=== PATIENT | female | born 1970 | race Caucasian/White ===

== ENCOUNTER → 2016-12-24 | Outpatient (CLI) | payer OTHER ==
--- NOTE | 2016-12-24 10:42 | DI ---
PA /LATERAL CHEST X-RAY, 12/24/2016 10:10 AM : Clinical History: Dyspnea. Previous Exam: 01/17/2016. There is no acute soft tissue or bony abnormality. Heart size is normal. Lungs are clear. Mediastinal structures are normal. There are no pulmonary nodules. There is a coiled tube in the upper abdomen i n this patient may have had a gastric banding procedure. Reading: Normal chest x-ray. There has been no interval change.
== END ==
LOC: MOB RAD 10:25
PROVIDERS: ATTEND Physician Assistant Medical
DX: R06.00 Dyspnea, unspecified (principal)
CPT/HCPCS: 71020

== ENCOUNTER 2017-01-13 06:39 | Emergency (ER) | payer OTHER ==
[2017-01-13 07:07] VITALS: RESP 18; TEMP 97.9
[2017-01-13] MEDS ORDERED: LIDOCAINE HCL 5 ML JEL TOPICAL ONE (08:26)
--- NOTE | 2017-01-13 08:47 | PDOC ---
General Adult HPI - General Chief Complaint: General Medical Stated Complaint: "balloon in my feeding tube popped" Date Seen by Provider: 01/13/17 Time Seen by Provider: 06:50 Source: POSITIVE: Patient Exam Limitations: POSITIVE: No limitations Nurse's Notes Reviewed & Considered: Yes - History of Present Illness Initial Comment: The patient is a 46-year-old female who presents to the emergency department stating that her PEG tube balloon ruptured. She has a history of gastroparesis and had a feeding tube placed per gastroenterology in [place] in 2012. She states that she generally gets her tube replaced every 6 months. Her current to has been in place for approximately 5 months. She states that this morning she felt something pop in her stomach and now the tube is no longer anchored. The tube remains in place. She does describe a little bit of a sharp pain in the area of the tube. She has no other associated symptoms. She does state that when she has had her tube replaced in the past they have always taken her to the operating room and done an endoscopy at the same time. Have you received a tetanus shot in the past 10 years?: Yes - Patient Home Medications Home Medications: Home Medications Estradiol [Vivelle-Dot] 1 patch TRANSDERM 2XW #8 patch 03/12/16 Morphine Sulfate 15 mg PO BID 06/09/16 Multivitamin [Multivitamins] 2 tab PO BID 06/09/16 Nutritional Supplement [Osmolite 1.2 Jhonathan] 4 each PO QID #120 bottle 08/12/16 Baclofen 10 mg PO QID tab 08/19/16 Buspirone HCl 2 tab PO bedtime tab 10/21/16 Dicyclomine HCl 5 ml PO Q4H PRN #120 bottle 11/14/16 Furosemide 20 mg PO DAILY #30 tab 11/14/16 Levothyroxine Sodium 1 tab PO DAILY #30 tab 12/13/16 Dexlansoprazole [Dexilant] 2 cap PO DAILY #60 cap 01/10/17 Fluoxetine HCl 40 mg PO DAILY #300 ml 01/10/17 - Patient Allergies Allergies/Adverse Reactions: Allergies Allergy/AdvReac Type Severity Reaction Status Date / Time hydrocodone AdvReac JITTERY/ITC Verified 01/13/17 06:49 HY oxycodone HCl [From Percocet] AdvReac JITTERY/ITC Verified 01/13/17 06:49 HY Past Medical History - heen HEENT History: Denies History, Other (please comment) Additional HEENT History: wears glasses/contacts Cardiovascular History: Other (please comment) Additional Cardiovasular History: MITRAL VALVE PROLAPSE Respiratory History: Pneumonia Additional Respiratory History: quit smoking several years ago Gastrointestinal History: GERD, Irritable Bowel Syndrome, Gallbladder Disease, Celiac Disease, Other (please comment) Additional Gastrointestinal History: ABDOMINAL STENTS, APPENDECTOMY, GASTROPARESIS. J TUBE (2012) osmolite feeding- 4 cans per day Genitourinary History: Denies History Endocrine History: Hypothyroidism Musculoskeletal History: Arthritis, Back Pain, Joint Pain, Other (please comment ) Prosthesis or Implant: Yes (C4-5 FUSED/KNEES) Additional Musculoskeletal History: 2 BACK FUSIONS AND BILAT KNEE REPLACEMENT, HEEL FX, left knee arthroplasty Neurological History: Migraines Additional Neurological History: MIGRAINES FREQUENT Blood Disorders: Denies History Psychiatric History: Depression, Anxiety Disorders Additional Psychiatric History: Insomnia History of Sexually Transmitted Diseases: No Female Reproductive History: Hysterectomy Cancer History: Denies History In Past Year Been Physically Harmed or Verbally Threatened: No History of MDRO: No History of Other Communicable Diseases: Yes (SHINGLES) Tobacco Use: Former Smoker Alcohol Use: None Substance Use Type: None Previous Surgical History: Yes Type / Date of Surgery: FULL HYSTERECTOMY, APPENDECTOMY, CHOLECYSTECTOMY, TONSILLECTOMY, J TUBES, COLONOSCOPY / EGD/ L KNEE /BACK/ TUBAL/ VERTEBRAL FUSION C4-5, RTKA, PEG TUBE INSERTION/UNILATERAL OOPHORECTOMY/ J TUBE REPLACED Anesthesia Reactions: No Malignant Hyperthermia: No Significant Family History: Heart disease, Diabetes, Other (please comment) Additional Family History: BIPOLAR DISORDER Past Medical History Reviewed: Reviewed - No Changes ROS - Limitations ROS Limitations: No Limitations Constitution: DENIES: Chills, Fever Cardiovascular: REPORTS: Denies Cardiac Symptoms Respiratory: REPORTS: Denies Resp Symptoms General Adult Exam - General Appearance General Appearance: POSITIVE: Alert, Cooperative, No Acute Distress - Respiratory Respiratory: POSITIVE: No Respiratory Distress, Breath Sounds Normal - Cardiovascular Cardiovascular: POSITIVE: Regular Rate & Rhythm, No Murmur - Abdomen Abdomen: Soft: (All Quadrants), Denies Tenderness: (All Quadrants), No Distention: (All Quadrants) Additional Abdominal Details: She does have a PEG tube in place. This does appear loose. I did attempt to aspirate the balloon and the balloon does appear to be ruptured at this time. - Extremities Extremity: Normal Inspection: (All Extremities) General Adult Progress - Results Reviewed by me Xrays/CTs/US Reviewed by me: Yes Radiology Findings: KUB reveals a long jejunostomy tube. - Patient's Progress MDM / ED Course: Shortly after arrival I did consult Dr. Pedersen from general surgery. He was not sure if this tube had some type of extension because of the patient's history of gastroparesis. He recommended either obtaining an x-ray or discussing the patient with her business transformation manager from [place]. Subsequently contacted the business transformation manager on-call at the [facility] in [place]. He will make arrangements to have the tube replaced down in [place] later this afternoon. This was discussed with the patient. She will keep the tube taped in place to prevent dislodgment. Her business transformation manager's office will be contacting her with an appointment time later this afternoon. - Consult Counseled: POSITIVE: Patient, RE: DX, RE: Need for F/U Patient Care Time - Estimated PCT Patient Care Time (In Minutes): 35 Vital Signs - Recent Vital Signs Vital Signs: Vital Signs (Last 8 hours) Temp Pulse Resp BP Pulse Ox 01/13/17 06:40 97.9 F 90 18 152/106 95 - VS Reviewed Vital Signs Reviewed: Yes Discharge Clinical Impression: Feeding tube dysfunction Discharge Disposition: Discharged to Home Condition: Stable Additional Instructions: Keep the feeding tube taped in place to prevent dislodgment. Dr. Salinas office should be getting a hold of you for an appointment time this afternoon in [place] for replacement of the tube. Return to the emergency room if increased pain, worsening or change in symptoms. Follow Up With: HOLLY HALL [Primary Care Provider] -
--- NOTE | 2017-01-13 09:40 | DI ---
XR ABDOMEN (KUB) FLAT [place],01/13/2017 8:50 AM: Clinical History: PEG tube malfunction. Previous Exam: January 17, 2016 Findings: 2 views of the abdomen and pelvis are obtained, and demonstrate a nonobstructive bowel gas pattern. A PEG tube is noted which appears to have a new coil over the midline. This appears to be within the distal stomach or within the duodenum. Impression: 1. New loop within the PEG tube. This could be within the duodenum, or could be outside of the patien t. Recommend correlation with physical exam.
== END 2017-01-13 10:17 | disposition home or self-care (01) ==
LOC: ER 06:39
DX: T85.598A Other mechanical complication of other gastrointestinal prosthetic devices, implants and grafts, initial encounter (principal)
CPT/HCPCS: 74000; 99282

== ENCOUNTER 2017-02-26 08:11 | Emergency (ER) | payer OTHER ==
[2017-02-26 08:30] VITALS: RESP 18
[2017-02-26] MEDS ORDERED: Famotidine Inj 20 MG in Normal Saline Flush 10 ML IVP ONE (08:40)
[2017-02-26] MEDS ORDERED: Sodium Chloride 0.9% 1,000 ML PRIMARY IV ONE (08:40)
[2017-02-26] MEDS ORDERED: NORMAL SALINE 10 ML SYRINGE FLUSH IVP PRN (08:40)
[2017-02-26 08:58] LABS: BASOPHILS # (AUTO) 0.03 10*3/UL; BASOPHILS % (AUTO) 0.4 % (0-1); EOSINOPHILS # (AUTO) 0.21 10*3/UL; EOSINOPHILS % (AUTO) 2.7 % (0-8); HEMATOCRIT 40.7 % (37.0-47.0); HEMOGLOBIN 14.2 g/dL (12.0-16.0); LYMPHOCYTES # (AUTO) 2.39 10*3/uL; MEAN CORPUSCULAR HEMOGLOBIN 27.3 PG (27-31); MEAN CORPUSCULAR HGB CONC 34.9 g/dL (33-37); MEAN CORPUSCULAR VOLUME 78.1 FL (81-99); MEAN PLATELET VOLUME 10.2 FL (7.4-12.2); MONOCYTES # (AUTO) 0.62 10*3/UL (0.3-0.8); NEUTROPHILS # (AUTO) 4.48 10*3/UL; NEUTROPHILS % (AUTO) 57.8 % (50-80); RED BLOOD COUNT 5.21 10^6/uL (4.20-5.40)
[2017-02-26] MEDS ORDERED: Belladon/PHENobarbital Elixir 10 ML, Lidocaine Viscous Liquid 2% 15 ML, Mag Hyd/Al Hyd/... PO ONE ×3 (09:00)
[2017-02-26] MEDS ORDERED: GLUCAGON EMERGENCY KIT 1 MG KIT IVP ONE (09:00)
[2017-02-26] MEDS ORDERED: LORazepam 2 MG/1 ML VIAL IVP ONE (09:00)
--- NOTE | 2017-02-26 09:01 | PDOC ---
General Adult HPI - General Chief Complaint: Abdomen Pain Stated Complaint: abd pain after j tube placed Date Seen by Provider: 02/26/17 Time Seen by Provider: 08:20 Source: POSITIVE: Patient Exam Limitations: POSITIVE: No limitations Nurse's Notes Reviewed & Considered: Yes - History of Present Illness Initial Comment: The patient is a 47-year-old female. She states that she has a history of gastroparesis and receives parenteral feedings with Osmolite through a jejunostomy tube. She had her jejunostomy tube replaced endoscopically by her team lead 5 days ago in [place]. The day after this procedure she developed "bad heartburn". She states she has pain with swallowing and she's describing odynophagia. No nausea or vomiting. Some loose bowel movements; no melena or hematochezia. No respiratory complaints. Patient states that she was advised by her team lead to come to the emergency room if she develops any chest pain. She states that when she swallows she has pain in the esophageal area. Patient has a history of celiac disease and multiple sclerosis. She's had an appendectomy, hysterectomy and cholecystectomy. Also has a history of chronic heartburn for which he takes Dexilant, 60 mg twice daily. Have you received a tetanus shot in the past 10 years?: Yes Body Location Affected: REPORTS: Chest, Abdomen Timing: REPORTS: Intermittent Duration: <1 week (4 days, ever since one day after her jejunostomy was replaced ) Severity: Moderate Quality: REPORTS: "Pain" Context: REPORTS: Other (Pain occurs mostly when swallowing) Modifying Factors: improves with: Nothing Similar Symptoms Previously: Yes (some past history of "heartburn".) Recent Care Received: REPORTS: Recently Seen, Treated by , Surgery ( jejunostomy tube replacement 5 days ago in [place] as above.) Any Prior Injuries Related to Current Complaint?: No - Patient Home Medications Home Medications: Home Medications Estradiol [Vivelle-Dot] 1 patch TRANSDERM 2XW #8 patch 03/12/16 Morphine Sulfate 5 mg PO QID 06/09/16 Multivitamin [Multivitamins] 2 tab PO BID 06/09/16 Nutritional Supplement [Osmolite 1.2 Jhonathan] 4 each PO QID #120 bottle 08/12/16 Baclofen 10 mg PO QID tab 08/19/16 Levothyroxine Sodium 1 tab PO DAILY #30 tab 12/13/16 Dicyclomine HCl 5 ml PO Q4H PRN #120 bottle 02/13/17 Buspirone HCl 10 mg J TUBE DAILY 02/26/17 Buspirone HCl 20 mg J TUBE BEDTIME 02/26/17 Dexlansoprazole [Dexilant] 60 mg J TUBE BID 02/26/17 FLUoxetine HCl [PROzac] 20 mg J TUBE DAILY 02/26/17 - Patient Allergies Allergies/Adverse Reactions: Allergies Allergy/AdvReac Type Severity Reaction Status Date / Time hydrocodone AdvReac JITTERY/ITC Verified 02/26/17 08:17 HY oxycodone HCl [From Percocet] AdvReac JITTERY/ITC Verified 02/26/17 08:17 HY Past Medical History - heen HEENT History: Denies History Additional HEENT History: wears glasses/contacts Cardiovascular History: Other (please comment) Additional Cardiovasular History: MITRAL VALVE PROLAPSE Respiratory History: Pneumonia Additional Respiratory History: quit smoking several years ago Gastrointestinal History: GERD, Irritable Bowel Syndrome, Gallbladder Disease, Celiac Disease, Other (please comment) Additional Gastrointestinal History: ABDOMINAL STENTS, APPENDECTOMY, GASTROPARESIS. J TUBE (2012) osmolite feeding- 4 cans per day Genitourinary History: Denies History Endocrine History: Hypothyroidism Musculoskeletal History: Arthritis, Back Pain, Joint Pain, Other (please comment ) Prosthesis or Implant: Yes (C4-5 FUSED/KNEES) Additional Musculoskeletal History: 2 BACK FUSIONS AND BILAT KNEE REPLACEMENT, HEEL FX, left knee arthroplasty Neurological History: Migraines Additional Neurological History: MIGRAINES FREQUENT Blood Disorders: Denies History Psychiatric History: Depression, Anxiety Disorders Additional Psychiatric History: Insomnia History of Sexually Transmitted Diseases: No Female Reproductive History: Hysterectomy Obstetrical History: Denies History Cancer History: Denies History In Past Year Been Physically Harmed or Verbally Threatened: No History of MDRO: No History of Other Communicable Diseases: Yes (SHINGLES) Tobacco Use: Never Smoker Alcohol Use: None Substance Use Type: None Previous Surgical History: Yes Type / Date of Surgery: FULL HYSTERECTOMY, APPENDECTOMY, CHOLECYSTECTOMY, TONSILLECTOMY, J TUBES, COLONOSCOPY / EGD/ L KNEE /BACK/ TUBAL/ VERTEBRAL FUSION C4-5, RTKA, PEG TUBE INSERTION/UNILATERAL OOPHORECTOMY/ J TUBE REPLACED Anesthesia Reactions: No Malignant Hyperthermia: No Significant Family History: Heart disease, Diabetes, Other (please comment) Additional Family History: BIPOLAR DISORDER Past Medical History Reviewed: Reviewed - No Changes ROS - Limitations ROS Limitations: No Limitations Constitution: REPORTS: Denies Symptoms Cardiovascular: REPORTS: Denies Cardiac Symptoms, Other (Odynophagia upper and mid esophagus) Respiratory: REPORTS: Denies Resp Symptoms Neurological: REPORTS: Denies Neuro Symptoms Gastrointestinal: REPORTS: Abdominal Pain (Some epigastric pain which patient describes as "heartburn") Endocrine: REPORTS: Denies Symptoms Musculoskeletal: REPORTS: Denies MS Symptoms Genitourinary: REPORTS: Denies Symptoms Eyes: REPORTS: Denies Symptoms ENT: REPORTS: Denies Symptoms Skin: REPORTS: Denies Skin Symptoms Lympathic: REPORTS: Denies Lympathic Symptoms Immunologic: POSITIVE: Denies Symptoms Psychiatric: POSITIVE: Denies Psych Symptoms General Adult Exam - General Appearance General Appearance: POSITIVE: Alert, Cooperative, No Acute Distress, No Evidence of Trauma - HEENT HEENT: POSITIVE: Head Inspection Nml, Eyes Inspection Nml, Ears Inspection Nml, Nose Inspection Nml, Oral/Dental Inspect. Nml, Pharynx Inspect. Nml, PERRL, EOMI - Pupils Pupil Size: 3 mm: Bilateral (PERRLA) - Neck Neck: POSITIVE: Normal Inspection, Thyroid Normal - Respiratory Respiratory: POSITIVE: No Respiratory Distress, Breath Sounds Normal, Chest Non- Tender - Cardiovascular Cardiovascular: POSITIVE: Regular Rate & Rhythm, No Murmur, No Gallop, PMI Normal Peripheral Pulses: Radial (R): 2+, Radial (L): 2+ - Abdomen Abdomen: Soft: (All Quadrants), Normal Bowel Sounds: (All Quadrants), Denies Tenderness: (LLQ), (RLQ), No Splenomegaly: (All Quadrants), No Hepatomegaly: ( All Quadrants), No Guarding: (All Quadrants), No Rebound: (All Quadrants), No Palpable Pulse: (All Quadrants), No Palpabale Mass: (All Quadrants), No Distention: (All Quadrants), No Rigidity: (All Quadrants), Tenderness Noted: ( RUQ), (LUQ) Additional Abdominal Details: Abdominal examination shows bowel sounds to be present. Patient states her J jejunostomy tube is functioning well. No distention. Patient does have some discomfort on direct palpation right and left upper abdominal quadrants and the epigastrium, without masses, organomegaly or rebound. - Back Back: POSITIVE: Normal Inspection - Skin Skin: POSITIVE: Normal Color, Warm, Dry, No Rash - Extremities Extremity: Non-Tender: (All Extremities), Normal ROM: (All Extremities), Normal Inspection: (All Extremities) - Neurological / Psychological Neurological: POSITIVE: Oriented X3, hide paster Normal As Tested, Motor Normal, Sensation Normal, 5, 6 Reflexes: Radial (R): 2+, Radial (L): 2+ Images - Complete Complete: 1 - Discomfort on palpation 2 - Patient describes pain on swallowing General Adult Progress - Results Reviewed by me Discussed with Radiologist: No (CT chest and abdomen pending at this time) Lab Results Reviewed: Yes (all laboratory results pending at this time) - Patient's Progress Pain Medication Addressed: POSITIVE: Yes (Patient given Pepcid 20 mg IV) School/Work Release Addressed: POSITIVE: No Re-Examine Time: 09:00 Status: POSITIVE: Unchanged, Re-Examined Patient Care Time - Estimated PCT Patient Care Time (In Minutes): 30 Vital Signs - Recent Vital Signs Vital Signs: Vital Signs (Last 8 hours) Temp Pulse Resp BP Pulse Ox 02/26/17 08:12 96.7 F L 89 18 158/98 95 - VS Reviewed Vital Signs Reviewed: Yes Discharge Clinical Impression: History of odynophagia, Abdominal pain of unknown etiology Discharge Disposition: Other (Laboratory results and radiographic testing results pending at this time. Patient transferred to the care of Dr. Wilson, who is emergency room physician which is coming on duty at 9 AM.) Condition: Stable Care Transferred To: Dr. Wilson, 9 AM
[2017-02-26 09:09] LABS: BLOOD UREA NITROGEN 13 mg/dL (7-22); BUN/CREATININE RATIO 16.25 (6-20); CALCIUM 8.8 mg/dL (8.7-10.7); EST GLOMERULAR FILTRATION > 60 (>60 ml/min/1.73m(2)); LIPASE 115 IU/L (23-300); SERUM ALBUMIN 4.1 g/dL (3.5-4.8)
[2017-02-26 09:11] LABS: PLATELET MORPHOLOGY COMMENT NORMAL MORPHOLOGY (NORM); RBC MORPHOLOGY COMMENT NORMAL MORPHOLOGY (NORM); WBC MORPHOLOGY COMMENT NORMAL MORPHOLOGY (NORM)
[2017-02-26] MEDS ORDERED: ONDANSETRON 4 MG/2 ML VIAL IVP ONE (09:11)
[2017-02-26] MEDS ORDERED: MORPHINE SULFATE 4 MG/1 ML IVP ONE (09:11)
--- NOTE | 2017-02-26 09:11 | PDOC ---
Transfer of Care - Care Accepted Time Care Transferred: 08:45 Report from Transferring Physician Received: Yes MDM / ED Course: This very pleasant lady comes in today because of increasing chest pain and epigastric pain. On Friday of last week patient had an endoscopy and J-tube placement performed in [place]. J-tube was placed because of the patient's history of gastroparesis and multiple sclerosis. On Friday she began to develop central chest pain with radiation to her epigastrium and bilateral upper quadrants. This is escalated and become unbearable. She comes in seeking evaluation. Initial evaluation was done by Dr. Crowley who has ordered lab studies and CT of chest and abdomen. He did order Pepcid which has been given. Patient's pain has continued. I have ordered Ativan, glucagon, and a GI cocktail. In addition morphine and Zofran are available for her if needed. She denies any headache, fever chills or sweats, no cough, no shortness of breath. Home Medications: Home Medications Estradiol [Vivelle-Dot] 1 patch TRANSDERM 2XW #8 patch 03/12/16 Morphine Sulfate 5 mg PO QID 06/09/16 Multivitamin [Multivitamins] 2 tab PO BID 06/09/16 Nutritional Supplement [Osmolite 1.2 Jhonathan] 4 each PO QID #120 bottle 08/12/16 Baclofen 10 mg PO QID tab 08/19/16 Levothyroxine Sodium 1 tab PO DAILY #30 tab 12/13/16 Dicyclomine HCl 5 ml PO Q4H PRN #120 bottle 02/13/17 Buspirone HCl 10 mg J TUBE DAILY 02/26/17 Buspirone HCl 20 mg J TUBE BEDTIME 02/26/17 Dexlansoprazole [Dexilant] 60 mg J TUBE BID 02/26/17 FLUoxetine HCl [PROzac] 20 mg J TUBE DAILY 02/26/17 Allergies/Adverse Reactions: Allergies hydrocodone Adverse Reaction (Verified 02/26/17 08:17) JITTERY/ITCHY oxycodone HCl [From Percocet] Adverse Reaction (Verified 02/26/17 08:17) JITTERY/ITCHY Vital Signs Reviewed: Yes Nurse's Notes Reviewed & Considered: Yes - Pending Patient Care Items Pending Patient Care Items: POSITIVE: Labs, Pain Control, CT / MRI Results - Expected Patient Outcome Tentative Impression of Patient: Dysphagia related to recent manipulation secondary to endoscopy. Expected Disposition: POSITIVE: Home - Re-Evaluation of Patient Re-Examine Time:: 11:23 (patient's pain has improved) Disposition of Patient: POSITIVE: Discharged Counseled: POSITIVE: Patient, RE: Lab Results, RE: Radiology Results, RE: DX, RE : Need for F/U Pending Test Results Documented: Yes Clinical Impression Documented: Yes (dysphagia related to recent esophageal manipulation. Liver mass.) - Results Reviewed Lab Results Reviewed by Me: Yes Lab Results: Laboratory Results 02/26/17 02/26/17 Range/Units 08:45 09:49 WBC 7.75 (4.8-10.8) 10^3/uL RBC 5.21 (4.20-5.40) 10^6/uL Hgb 14.2 (12.0-16.0) g/dL Hct 40.7 (37.0-47.0) % MCV 78.1 L (81-99) FL MCH 27.3 (27-31) PG MCHC 34.9 (33-37) g/dL RDW Std Deviation 41.7 (39-50) fL RDW Coeff of [place] 14.9 H (11.5-14.5) % Plt Count 268 (140-350) 10*3/uL MPV 10.2 (7.4-12.2) FL Immature Gran % (Auto) 0.3 (0-5) % Neut % (Auto) 57.8 (50-80) % Lymph % (Auto) 30.8 (10-50) % [place] % (Auto) 8.0 (5-15) % Eos % (Auto) 2.7 (0-8) % Baso % (Auto) 0.4 (0-1) % Immature Gran # (Auto) 0.02 10*3/UL Neut # (Auto) 4.48 10*3/UL Lymph # (Auto) 2.39 10*3/uL [place] # (Auto) 0.62 (0.3-0.8) 10*3/UL Eos # (Auto) 0.21 10*3/UL Baso # (Auto) 0.03 10*3/UL WBC Morphology Comment Normal morphology (NORM) Plt Morphology Comment Normal morphology (NORM) RBC Morph Comment Normal morphology (NORM) Sodium 140 (135-145) meq/L Potassium 3.8 (3.8-5.2) meq/L Chloride 104 (98-112) meq/L Carbon Dioxide 23 (23-33) meq/L Anion Gap 13 (5-20) BUN 13 (7-22) mg/dL Creatinine 0.8 (0.50-1.20) mg/dL Estimated GFR > 60 (>60 ml/min/1.73m(2)) BUN/Creatinine Ratio 16.25 (6-20) Glucose 129 H (78-110) mg/dL Calculated Osmolality 291.0 (267-292) mOsm/kg Calcium 8.8 (8.7-10.7) mg/dL Total Bilirubin 0.4 (0.3-1.2) mg/dL AST 25 (8-39) IU/L ALT 31 (9-52) IU/L Alkaline Phosphatase 46 (38-126) IU/L Troponin I < 0.012 (< 0.040) ng/mL C-Reactive Protein 2.2 H (0.0-0.9) mg/dL Total Protein 7.1 (6.1-8.0) g/dL Albumin 4.1 (3.5-4.8) g/dL Globulin 2.9 (2.50-4.10) g/dL Albumin/Globulin Ratio 1.40 (1.3-2.0) mg/g Amylase 79 (30-110) U/L Lipase 115 (23-300) IU/L Ur Collection Type Clean catch urine Urine Color Yellow Urine Clarity Clear (CLEAR) Urine pH 6.5 (5.0-8.5) Ur Specific [place] 1.003 (1.005-1.030) Urine Protein Negative (NEG) mg/dl Urine Glucose (UA) Negative (NEG) mg/dL Urine Ketones Negative (NEG) Urine Occult Blood Negative (NEG) Urine Nitrate Negative (NEG) Urine Bilirubin Negative (NEG) Urine Urobilinogen 0.2 (0.2) EU/dL Ur Leukocyte Esterase Negative (NEG) Ur Culture Indicated? Culture not set EKG Interpreted/Reviewed By Me:: Yes EKG Interpretation:: POSITIVE: Normal Sinus Rhythm, Normal Rate, Normal QRS, Normal ST/T - Consult Recommendations:: Patient is to follow-up with her GI doctor in [place]. Her G-tube is coiled in her stomach. She does have a area in her liver that is enhancing and a 3-phase CT for liver should be obtained. Patient Care Time - Estimated PCT Patient Care Time (In Minutes): 30 Vital Signs - Recent Vital Signs Vital Signs: Vital Signs (Last 8 hours) Temp Pulse Resp BP Pulse Ox 02/26/17 08:12 96.7 F L 89 18 158/98 95 - VS Reviewed Vital Signs Reviewed: Yes Discharge Clinical Impression: History of odynophagia, Abdominal pain of unknown cause Discharge Disposition: Discharged to Home Condition: Stable Patient Instructions Given at Discharge: Acute Abdominal Pain (ED) Follow Up With: HOLLY HALL [Primary Care Provider] -
[2017-02-26 09:53] LABS: BILIRUBIN,URINE NEGATIVE (NEG); CLARITY,URINE CLEAR (CLEAR); COLOR,URINE YELLOW; GLUCOSE, URINE (UA) NEGATIVE (NEG); NITRATE,URINE NEGATIVE (NEG); OCCULT BLOOD,URINE NEGATIVE (NEG); PH,URINE 6.5 (5.0-8.5); PROTEIN,URINE NEGATIVE (NEG); UROBILINOGEN,URINE 0.2 EU/dL (0.2)
--- NOTE | 2017-02-26 09:54 | EKG ---
[address] [address] Measurements Intervals [place] Rate: 77 P: 58 CO: 164 QRS: 95 QRSD: 106 T: 83 QT: 408 QTc: 440 Interpretive Statements SINUS RHYTHM INDETERMINATE AXIS Compared to ECG 06/09/2016 12:47:41 Incomplete right bundle-branch block no longer present Electronically Signed On 02-26-17 16:10:47 MDT by Eric Oviedo [email or web address]
[2017-02-26 09:57] LABS: URINE SAMPLE TYPE CLEAN CATCH URINE
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
--- NOTE | 2017-02-26 10:47 | DI ---
CT CHEST W/CONTRAST,02/26/2017 8:42 AM: Clinical History: Status post recent J-tube placement. Previous Exam: None at this facility. Findings: Multiple helically acquired CT images are obtained through the chest following intravenous administra tion of contrast. The lungs are clear. The thyroid is unremarkable. The pulmonary arteries are normal. The aorta is also normal. There is no evidence of mediastinal lymp hadenopathy. The upper abdomen demonstrates diffuse fatty infiltration. Patient is also status post cholecystectomy. There is a J-tube noted through the anterior abdominal wall. The distal most portion of the tube whic h should be extending through the duodenum is curled within the upper stomach. The esophagus is normal. There is no evidence of perforation. Skeletal structures are unremarkable. Impression: 1. Clear lungs. 2. New percutaneous jejunostomy tube with the distal portion of the tube curled within the stomach. T his should be within the duodenum.
--- NOTE | 2017-02-26 11:08 | DI ---
CT ABD W/CN AND PELVIS W/CN,02/26/2017 8:41 AM: Clinical History: Abdominal pain. Previous Exam: July 30, 2016 Findings: Multiple helically acquired CT images are obtained through the abdomen and pelvis following intraveno us administration of contrast. The urinary bladder is unremarkable. There is diffuse fatty infiltration of the liver. There is also an enhancing mass within the posterio r segment of the right lobe of the liver measuring 2.5 cm in diameter. This was also seen on the exam ination of July 30, 2016, and is similar in size. This was not seen on the examination in 2011 wh ich was performed at a similar phase of contrast. There is faint enhancement in this area dating back to April 30, 2015. Patient is status post cholecystectomy. Impression: 1. 2.5 cm enhancing mass within the posterior segment of the right lobe of the liver inferiorly. This has been present dating back to 2014, but was only faintly enhancing at that time. Consider [facility] liver CT for further evaluation. 2. New jejunostomy tube with the tip coiled in the stomach. This should be within the jejunum.
[2017-02-26 11:47] VITALS: TEMP 97.2
== END 2017-02-26 11:44 | disposition home or self-care (01) ==
LOC: ER 08:11
DX: R13.19 Other dysphagia (principal); R12 Heartburn; R10.13 Epigastric pain; K90.0 Celiac disease; G35 Multiple sclerosis
CPT/HCPCS: 71010; 71260; 74177; 80053; 81003; 82150; 83690; 84484; 85025; 86140; 93005; 93010; 96361; 96374; 96375; 99284; J2060; J7030

== ENCOUNTER → 2017-03-05 | Outpatient (CLI) | payer OTHER | LOC: MMPC 09:00 | PROVIDERS: ATTEND Family Medicine | DX: G47.33 Obstructive sleep apnea (adult) (pediatric) (principal) | CPT/HCPCS: 99213; G0463 ==

== ENCOUNTER 2018-09-18 17:23 | Observation (INO) ==
[2018-09-18] MEDS ORDERED: Sodium Chloride 0.9% 1,000 ML PRIMARY IV ONE (17:35)
[2018-09-18] MEDS ORDERED: MORPHINE SULFATE 4 MG/1 ML IVP ONE (17:35)
[2018-09-18] MEDS ORDERED: ONDANSETRON 4 MG/2 ML VIAL IVP ONE (17:35)
[2018-09-18 18:06] LABS: BASOPHILS # (AUTO) 0.04 10*3/UL; BASOPHILS % (AUTO) 0.3 % (0-1); EOSINOPHILS % (AUTO) 3.5 % (0-8); Hematocrit [HCT] 42.4 % (37.0-47.0); Hemoglobin [HGB] 14.6 g/dL (12.0-16.0); LYMPHOCYTES # (AUTO) 3.31 10*3/uL; MEAN CORPUSCULAR HGB CONC 34.4 g/dL (33-37); MEAN CORPUSCULAR VOLUME 81.2 FL (81-99); MEAN PLATELET VOLUME 10.8 FL (7.4-12.2); MONOCYTES # (AUTO) 0.74 10*3/UL (0.3-0.8); MONOCYTES % (AUTO) 6.4 % (5-15); NEUTROPHILS # (AUTO) 7.04 10*3/UL; NEUTROPHILS % (AUTO) 60.8 % (50-80); RED BLOOD COUNT 5.22 10^6/uL (4.20-5.40)
[2018-09-18 18:09] LABS: PLATELET MORPHOLOGY COMMENT NORMAL MORPHOLOGY (NORM); RBC MORPHOLOGY COMMENT NORMAL MORPHOLOGY (NORM); WBC MORPHOLOGY COMMENT NORMAL MORPHOLOGY (NORM)
[2018-09-18 18:21] LABS: LIPASE 67 IU/L (23-300)
[2018-09-18 18:25] LABS: BLOOD UREA NITROGEN 14 mg/dL (7-22); SERUM ALBUMIN 4.5 g/dL (3.5-4.8)
--- NOTE | 2018-09-18 19:54 | DI ---
EXAM: CT Abdomen and Pelvis With Intravenous Contrast CLINICAL HISTORY: ITS.REASON abdominal pain, infection related to J-tube Physician Notes: Tech Comments: TECHNIQUE: Axial computed tomography images of the abdomen and pelvis with intravenous contrast. COMPARISON: No relevant prior studies available. FINDINGS: Lung bases: Basilar atelectasis. ABDOMEN: Liver: Large fatty liver. Gallbladder and bile ducts: Cholecystectomy. Pancreas: Unremarkable. Spleen: Unremarkable. Adrenals: Unremarkable. Kidneys and ureters: Unremarkable. No hydronephrosis. Stomach and bowel: No kaye mural thickening. Nonobstructive bowel gas pattern. PELVIS: Appendix: Appendix not identified. Bladder: Unremarkable. Reproductive: Hysterectomy. ABDOMEN and PELVIS: Intraperitoneal space: Unremarkable. Bones/joints: No acute fracture. Soft tissues: Lesion or geographic fat sparing in the right lobe measuring approximately 2.2 cm. Vasculature: Unremarkable. No abdominal aortic aneurysm. Lymph nodes: No enlarged lymph nodes. Tubes, lines and devices: Percutaneous feeding tube in the stomach. Collection containing fluid and tiny air measuring about 15 mm in the abdominal wall adjacent to the tube. IMPRESSION: 1. Percutaneous feeding tube in the stomach, does not extend to the jejunum. 15 mm Collection containing fluid and tiny air in the abdominal wall adjacent to the tube. 2. Lesion or geographic fat sparing in the right lobe measuring approximately 2.2 cm. 3. Appendix not identified.
[2018-09-18] MEDS ORDERED: Lactated Ringers 1,000 ML PRIMARY IV ONE (21:37)
[2018-09-18] MEDS ORDERED: ceFAZolin 1 GM VIAL ONE (21:55)
[2018-09-18] MEDS ORDERED: Sodium Chloride 0.9% 200 ML IV ONE (21:55)
[2018-09-18] MEDS: ceFAZolin Inj 2 GM in Sodium Chloride 0.9% 100 ML IV SCH (22:06)
[2018-09-18] MEDS ORDERED: ONDANSETRON 4 MG/2 ML VIAL IVP PRN (22:38)
[2018-09-18] MEDS: busPIRone HCL 5 MG TABLET PO SCH (22:59)
[2018-09-18] MEDS: Sucralfate Tab 1 GM TAB PO SCH (22:59)
[2018-09-18] MEDS: DICYCLOMINE 20 MG TABLET PO SCH (22:59)
[2018-09-18] MEDS: Metoprolol TARTRATE Tab 25 MG TAB PO SCH (23:00)
[2018-09-18] MEDS: BACLOFEN 20 MG TABLET PO SCH (23:00)
[2018-09-18] MEDS: MORPHINE SULFATE 2 MG/1 ML IVP PRN (23:01)
[2018-09-18] MEDS: DEXILANT 60 MG PO SCH (23:05)
[2018-09-18] MEDS ORDERED: Lactated Ringers 1,000 ML PRIMARY IV SCH (23:45)
[2018-09-19] MEDS: MORPHINE SULFATE 2 MG/1 ML IVP PRN ×3 (01:32→05:32)
--- NOTE | 2018-09-19 01:57 | PDOC ---
General Adult HPI - General Chief Complaint: Abdomen Pain Stated Complaint: inflammation around J-Tube Date Seen by Provider: 09/19/18 Time Seen by Provider: 17:35 Source: POSITIVE: Patient Exam Limitations: POSITIVE: No limitations Nurse's Notes Reviewed & Considered: Yes - History of Present Illness Initial Comment: The patient is a 48-year-old female who presents to the emergency department with worsening infection around her J-tube site. She had a J-tube placed approximately 4 and half years ago for gastroparesis. She states that shortly after the original tube was placed she had developed a fairly severe infection a nd was in the hospital for a prolonged period of time. Since then she gets her J-tube replaced about every 6 months. She had the J-tube replaced in early August. Earlier this week she started to develop some increased redness and pain around the J-tube site. She was seen at the walk-in clinic and diagnosed with an infection and started on Bactrim suspension. Over the past 2 days since starting the antibiotics the pain seems to have worsened and is now radiating to her lower chest and under her ribs as well as down into her abdomen. She has associated night sweats. She denies fever. She has not had any vomiting or diarrhea. The area of redness around the J-tube has also increased and she has been having some drainage from around the tube. Have you received a tetanus shot in the past 10 years?: Unknown - Patient Home Medications Home Medications: Home Medications Multivitamin [Multivitamins] 2 tab PO BID 06/09/16 Nutritional Supplement [Osmolite 1.2 Jhonathan] 4 ea PO QID #120 bottle 08/12/16 Dexlansoprazole [Dexilant] 60 mg J TUBE BID #60 cap 03/12/17 Fluoxetine HCl 20 mg J TUBE DAILY #30 cap 03/12/17 Furosemide 2 ml J TUBE DAILY #60 ml 04/11/17 diclofenac 75 mg-misoprostol 200 mcg tablet,immediate,delayed release 1 tab PO QDAY PRN #30 tab 05/15/18 estradiol 0.1 mg/24 hr weekly transdermal patch 1 patch TRANSDERM WEEKLY #12 patch 05/15/18 fluoxetine 20 mg/5 mL (4 mg/mL) oral solution 40 mg PO QDAY #200 ml 05/15/18 levothyroxine 25 mcg tablet 25 mcg PO DAILY #30 tab 05/15/18 epinephrine 0.3 mg/0.3 mL injection, auto-injector 0.3 mg IM Q10-15M PRN #2 ea 07/07/18 baclofen 10 mg tablet 10 mg PO QID #120 tab 08/11/18 buspirone 10 mg tablet 10 mg PO TID #90 tab 08/11/18 cholecalciferol (vitamin D3) 2,000 unit capsule 4,000 unit PO QDAY cap 08/11/18 dexlansoprazole 60 mg capsule,biphase delayed release 60 mg PO BID #60 cap 08/11/18 morphine 10 mg/5 mL oral solution 20 mg PO 5XD ml 08/11/18 ondansetron 4 mg disintegrating tablet 4 mg PO BID-TID PRN #30 tab 08/11/18 sucralfate 1 gram tablet 1 g PO QID PRN tab 08/11/18 dicyclomine 10 mg/5 mL oral solution 5 mg PO .q4-6 PRN #600 ml 08/24/18 sumatriptan 6 mg/0.5 mL subcutaneous pen injector 6 mg SUBCUT ONCE PRN #2 ml 08/24/18 metoprolol tartrate 25 mg tablet 12.5 mg PO BID #30 tab 09/09/18 sulfamethoxazole 800 mg-trimethoprim 160 mg tablet 1 tab PO BID 10 Days #20 tab 09/17/18 - Patient Allergies Allergies/Adverse Reactions: Allergies Allergy/AdvReac Type Severity Reaction Status Date / Time hydrocodone AdvReac JITTERY/ITC Verified 09/18/18 17:26 HY oxycodone HCl [From Percocet] AdvReac JITTERY/ITC Verified 09/18/18 17:26 HY Past Medical History - heen HEENT History: Denies History Additional HEENT History: ALLERGIC RHINITIS, DEVIATED SEPTUM, NASAL OBSTRUCTION/wears glasses/contacts Cardiovascular History: Other (please comment) Additional Cardiovasular History: MITRAL VALVE PROLAPSE Respiratory History: Pneumonia, Snoring Additional Respiratory History: quit smoking several years ago Gastrointestinal History: GERD, Irritable Bowel Syndrome, Celiac Disease, Other (please comment) Additional Gastrointestinal History: ABDOMINAL STENTS, APPENDECTOMY, GASTROPARESIS. J TUBE (2012) osmolite feeding- 4 cans per day Genitourinary History: Denies History Endocrine History: Hypothyroidism Musculoskeletal History: Arthritis, Back Pain, Joint Pain, Other (please comment) Prosthesis or Implant: Yes (C4-5 FUSED/KNEES) Additional Musculoskeletal History: 2 Neck FUSIONS C 4-5 AND BILAT KNEE REPLACEMENT, HEEL FX, left knee arthroplasty Neurological History: Migraines Additional Neurological History: MIGRAINES FREQUENT yesterday Blood Disorders: Denies History Psychiatric History: Depression, Anxiety Disorders Additional Psychiatric History: Insomnia History of Sexually Transmitted Diseases: No Female Reproductive History: Hysterectomy Cancer History: Denies History In Past Year Been Physically Harmed or Verbally Threatened: No History of MDRO: No Other Type of MDRO: "STAPH" INFECTION IN PREVIOUS J TUBE/ DENIES MRSA History of Other Communicable Diseases: Yes (SHINGLES) Tobacco Use: Never Smoker Alcohol Use: None In the Past 12 Months, Have Used or Abuse Any Substance: None Previous Surgical History: Yes Type / Date of Surgery: FULL HYSTERECTOMY, APPENDECTOMY, CHOLECYSTECTOMY, TONSILLECTOMY, J TUBES, COLONOSCOPY / EGD/ L KNEE scope / TUBAL/ VERTEBRAL FUSION C4-5, RTKA, PEG TUBE INSERTION/UNILATERAL OOPHORECTOMY/ J TUBE REPLACED 01/30 Anesthesia Reactions: No Malignant Hyperthermia: No Significant Family History: Heart disease, Diabetes, Other (please comment) Additional Family History: BIPOLAR DISORDER Past Medical History Reviewed: Reviewed - No Changes ROS - Limitations ROS Limitations: No Limitations Constitution: REPORTS: Night Sweats. DENIES: Chills, Fever Cardiovascular: REPORTS: Denies Cardiac Symptoms Respiratory: REPORTS: Denies Resp Symptoms, Hurts To Breathe. DENIES: Shortness Of Breath Neurological: REPORTS: Denies Neuro Symptoms Gastrointestinal: REPORTS: Abdominal Pain. DENIES: Nausea, Vomitting, Diarrhea Musculoskeletal: REPORTS: Joint Pain, Muscle Aches Genitourinary: REPORTS: Denies Symptoms Eyes: REPORTS: Denies Symptoms ENT: REPORTS: Denies Symptoms General Adult Exam - General Appearance General Appearance: POSITIVE: Alert, Cooperative, No Acute Distress - HEENT HEENT: POSITIVE: Head Inspection Nml, Eyes Inspection Nml, Ears Inspection Nml, Nose Inspection Nml, Pharynx Inspect. Nml - Neck Neck: POSITIVE: Normal Inspection. NEGATIVE: Lymphadenopathy - Respiratory Respiratory: POSITIVE: No Respiratory Distress, Breath Sounds Normal - Cardiovascular Cardiovascular: POSITIVE: Regular Rate & Rhythm, No Murmur Peripheral Pulses: Dorsalis-pedis (R): 2+, Dorsalis-pedis (L): 2+ - Abdomen Additional Abdominal Details: She does have a J-tube in place, there is some surrounding erythema and induration, no visible drainage currently, she has generalized tenderness around the J-tube site and to even minimal palpation of her abdomen, bowel sounds are present - Skin Skin: POSITIVE: Normal Color, No Rash - Extremities Extremity: Normal ROM: (All Extremities), Normal Inspection: (All Extremities) - Neurological / Psychological Neurological: POSITIVE: Oriented X3, Motor Normal, Sensation Normal General Adult Progress - Results Reviewed by me Xrays/CTs/US Reviewed by me: Yes Discussed with Radiologist: Yes Radiology Findings: CT scan of the abdomen and pelvis shows J-tube with the tip terminating in the stomach rather than in the jejunum, there is a small fluid collection with an air bubble adjacent to the tube per radiologist. Lab Results Reviewed by Me: Yes Lab Results:: Laboratory Results 09/18/18 09/18/18 09/18/18 17:40 17:40 17:40 WBC 11.58 H RBC 5.22 Hgb 14.6 Hct 42.4 MCV 81.2 MCH 28.0 MCHC 34.4 RDW Std Deviation 43.7 RDW Coeff of Myke 14.8 H Plt Count 243 MPV 10.8 Immature Gran % (Auto) 0.4 Neut % (Auto) 60.8 Lymph % (Auto) 28.6 [place] % (Auto) 6.4 Eos % (Auto) 3.5 Baso % (Auto) 0.3 Immature Gran # (Auto) 0.05 Neut # (Auto) 7.04 Lymph # (Auto) 3.31 [place] # (Auto) 0.74 Eos # (Auto) 0.40 Baso # (Auto) 0.04 WBC Morphology Comment Normal morphology Plt Morphology Comment Normal morphology RBC Morph Comment Normal morphology Sodium 138 Potassium 3.7 L Chloride 104 Carbon Dioxide 24 Anion Gap 10 BUN 14 Creatinine 0.7 Estimated GFR > 60 BUN/Creatinine Ratio 20.00 Glucose 150 H Calculated Osmolality 289.0 Lactic Acid 2.0 Calcium 9.0 Total Bilirubin 0.3 AST 30 ALT 33 Alkaline Phosphatase 49 C-Reactive Protein 1.3 H Total Protein 7.1 Albumin 4.5 Globulin 2.6 Albumin/Globulin Ratio 1.70 Amylase Lipase 09/18/18 17:40 WBC RBC Hgb Hct MCV MCH MCHC RDW Std Deviation RDW Coeff of [place]ke Plt Count MPV Immature Gran % (Auto) Neut % (Auto) Lymph % (Auto) [place] % (Auto) Eos % (Auto) Baso % (Auto) Immature Gran # (Auto) Neut # (Auto) Lymph # (Auto) [place] # (Auto) Eos # (Auto) Baso # (Auto) WBC Morphology Comment Plt Morphology Comment RBC Morph Comment Sodium Potassium Chloride Carbon Dioxide Anion Gap BUN Creatinine Estimated GFR BUN/Creatinine Ratio Glucose Calculated Osmolality Lactic Acid Calcium Total Bilirubin AST ALT Alkaline Phosphatase C-Reactive Protein Total Protein Albumin Globulin Albumin/Globulin Ratio Amylase 47 Lipase 67 CBC and BMP: 09/18/18 17:40 09/18/18 17:40 - Patient's Progress MDM / ED Course: The patient was reporting 7 out of 10 pain on arrival and she appeared to be uncomfortable. Blood work was drawn including blood cultures and lactate. She received morphine 4 mg IV and Zofran 4 mg IV for pain. Her white count and CRP are both mildly elevated and other work is essentially unremarkable. CT scan of the abdomen and pelvis shows the J-tube terminating in the stomach rather than in the jejunum and she does have a small fluid collection with small air bubble adjacent to the J-tube in the soft tissue. A surgical consultation was obtained per Dr. Green and he has made arrangements to admit the patient for further treatment. - Consult Counseled: POSITIVE: Patient, Family, RE: Lab Results, RE: Radiology Results, RE: DX Patient Care Time - Estimated PCT Patient Care Time (In Minutes): 30 Vital Signs - Recent Vital Signs Vital Signs: Vital Signs (Last 8 hours) Temp Pulse Resp BP Pulse Ox 09/19/18 00:22 97.5 F 64 16 101/49 93 09/18/18 22:23 98.2 F 80 20 136/73 93 - VS Reviewed Vital Signs Reviewed: Yes Discharge Clinical Impression: Gastroparesis, Soft tissue infection Discharge Disposition: Admit to Observation Condition: Fair
[2018-09-19] MEDS: ceFAZolin Inj 2 GM in Sodium Chloride 0.9% 100 ML IV SCH (04:59)
[2018-09-19] MEDS ORDERED: LEVOTHYROXINE 25 MCG TABLET PO SCH ×2 (05:30→09:04)
[2018-09-19] MEDS ORDERED: PROPOFOL 10 MG/1 ML (200 MG/20 ML) VIAL IV ONE ×2 (07:04→08:53)
[2018-09-19] MEDS ORDERED: MORPHINE SULFATE 10 MG/1 ML ONE (08:00)
--- NOTE | 2018-09-19 08:56 | GEN.OPNOTE ---
EGD Operative Note Surgery Date: 09/19/18 Preoperative Diagnosis: Gastroparesis. Dislodged J-tube. Abdominal wall cellul itis Postoperative Diagnosis: Same except cellulitis was associated with an abscess Procedure: EGD with biopsy and placement of J-tube. I&D, simple, of abdominal wall abscess Surgeon: Natalie Green Anesthesia Provider: Beata Fink CRNA Anesthesia Type: MAC Indications: The patient has gastroparesis and the J tube of the G-J tube dislodged out of the small bowel and back into the stomach Findings: Esophagus: [] GE Junction : [] Fundus : [] Body : [] Prepyloric : [] Small Intestine : [] A lubricated flexible upper endoscope was inserted and passed through the esophagus and stomach into the duodenum. Estimated Blood Loss (mL): 1
[2018-09-19] MEDS ORDERED: FLUoxetine 20 MG CAPSULE PO SCH (09:00)
[2018-09-19] MEDS ORDERED: EPINEPHrine 0.3 MG/0.3 ML AUTO-INJECTOR IM PRN (09:04)
[2018-09-19] MEDS ORDERED: BACLOFEN 10 MG PO SCH (09:04)
[2018-09-19] MEDS ORDERED: MORPHINE SULFATE 2 MG/1 ML IVP PRN (09:04)
[2018-09-19] MEDS ORDERED: ESTRADIOL TRANSDERM SCH (09:04)
[2018-09-19] MEDS ORDERED: DICLOFENAC SODIUM PO PRN (09:04)
[2018-09-19] MEDS ORDERED: ONDANSETRON 4 MG/2 ML VIAL IVP PRN (09:04)
[2018-09-19] MEDS ORDERED: MORPHINE SULFATE 20 MG PO SCH (09:04)
[2018-09-19] MEDS ORDERED: MISOPROSTOL PO PRN (09:04)
[2018-09-19] MEDS ORDERED: BUSPIRONE HCL 10 MG PO SCH (09:04)
[2018-09-19] MEDS ORDERED: FLUOXETINE HCL 40 MG PO SCH (09:04)
[2018-09-19] MEDS ORDERED: Lactated Ringers 1,000 ML PRIMARY IV SCH (09:04)
[2018-09-19] MEDS ORDERED: Ondansetron ODT Tab 4 MG TAB PO PRN (09:04)
[2018-09-19] MEDS ORDERED: Metoprolol TARTRATE Tab 25 MG TAB PO SCH ×2 (09:04→21:00)
--- NOTE | 2018-09-19 09:04 | CRNA.PROGR ---
Anesthesia Time - Procedure/Recovery Time Start Date: 09/19/18 End Date: 09/19/18 Anesthesia : Time In: 07:54 Anesthesia : Time Out: 08:53 Anesthesia : Total Time: 59 - Total Anesthesia Time Total Anesthesia Time (minutes): 59 - Other Weight: 75.206 kg Height: 5 ft 6 in Body Mass Index (BMI): 26.7 Physical Status: P2 Anesthesia Type: MAC
--- NOTE | 2018-09-19 09:05 | CRNA.PROGR ---
Post Anesthesia Phase II - Post Anesthesia Phase II Patient Stable and Discharged To: Med/Surg Care Assumed By Surgeon: Other Temperature: 98.3 F Pulse Rate: 78 Respiratory Rate: 12 Blood Pressure: 132/76 Pulse Ox: 95 Total Charan Score at Discharge: 9 Post Anesthesia Discharge Criteria Met: Yes Additional Details: Big complaint post procedure-taste of the Cetacaine spray.
[2018-09-19] MEDS ORDERED: CHOLECALCIFEROL 1000 IU TABLET PO SCH (10:15)
[2018-09-19] MEDS ORDERED: OMEPRAZOLE 40 MG CAPSULE PO SCH (10:15)
[2018-09-19] MEDS ORDERED: SUMAtriptan Succinate 6 MG/0.5 ML SUBCUT PRN (10:15)
--- NOTE | 2018-09-19 10:26 | DI ---
EXAM: XR Abdomen, 2 Views CLINICAL HISTORY: Assess J-tube placement after endoscopy TECHNIQUE: Frontal views of the abdomen/pelvis . COMPARISON: CT abdomen pelvis dated 09/18/18 and 02/26/17, abdominal x-ray dated , FINDINGS: Intraperitoneal space: No evidence of intraperitoneal free air. Gastrointestinal tract: Bowel gas pattern appears unremarkable. Organs: Surgical clips in the right upper abdominal quadrant suggest prior cholecystectomy. Renal shadows are partially obscured by overlying bowel gas. Bones/joints: Visualized skeletal structures appear unremarkable. Tubes, lines and devices: Gastrojejunostomy tube is identified in the midepigastric region, with the tip possibly within the stomach or proximal small bowel. IMPRESSION: Gastrojejunostomy tube in the midepigastric region, with the tip possibly within the stomach or proximal small bowel. If there is continued clinical concern, a small volume (15-30 cc) Gastrografin may be injected into the tube and repeat x-ray obtained to confirm tube tip location.
[2018-09-19] MEDS ORDERED: Sucralfate Tab 1 GM TAB PO SCH (11:00)
[2018-09-19] MEDS ORDERED: DICYCLOMINE 20 MG TABLET PO PRN (11:00)
[2018-09-19] MEDS: Sucralfate Tab 1 GM TAB PO SCH (11:30)
[2018-09-19] MEDS: busPIRone HCL 5 MG TABLET PO SCH (11:31)
[2018-09-19] MEDS: Metoprolol TARTRATE Tab 25 MG TAB PO SCH (11:31)
[2018-09-19] MEDS: BACLOFEN 20 MG TABLET PO SCH (11:31)
[2018-09-19] MEDS: DICYCLOMINE 20 MG TABLET PO SCH (11:31)
[2018-09-19] MEDS: DEXILANT 60 MG PO SCH (11:31)
[2018-09-19 11:36] VITALS: BP 106/56; RESP 16; TEMP 98.3; O2SAT 90
[2018-09-19] MEDS: NUTRITIONAL SUPPLEMENT PO SCH ×2 (11:53→13:43)
[2018-09-19] MEDS ORDERED: ceFAZolin Inj 2 GM in Sodium Chloride 0.9% 100 ML IV SCH (13:00)
[2018-09-19] MEDS ORDERED: DICYCLOMINE 20 MG TABLET PO SCH (13:00)
[2018-09-19] MEDS ORDERED: BACLOFEN 20 MG TABLET PO SCH (15:00)
[2018-09-19] MEDS ORDERED: busPIRone HCL 5 MG TABLET PO SCH (15:00)
[2018-09-19] MEDS ORDERED: DEXILANT 60 MG PO SCH (21:00)
[2018-09-20] MEDS ORDERED: LEVOTHYROXINE 25 MCG TABLET PO SCH (05:30)
[2018-09-20] MEDS ORDERED: LIDOCAINE W/ SODIUM BICARB 0.5 ML SYR SUBD ONE ×2 (06:00)
[2018-09-20] MEDS ORDERED: Lactated Ringers 1,000 ML PRIMARY IV SCH ×2 (06:00)
[2018-09-20] MEDS ORDERED: FLUoxetine 20 MG CAPSULE PO SCH (09:00)
== END 2018-09-19 15:18 | disposition home or self-care (01) ==
LOC: MED/SURG 17:23 → ER 17:23 → MED/SURG 22:05 → OPS 09-19 07:45 → MED/SURG 09-19 08:55
PROVIDERS: ADMIT Surgery; ATTEND Surgery